=== PATIENT | female | born 1950 | race Caucasian/White ===

== ENCOUNTER 2020-05-13 20:23 | Emergency (ER) | payer MEDICARE, BC ==
[~2020-05-13] VITALS: Ht 157.5 cm; Wt 81.3 kg
[2020-05-13 23:19] LABS: BASOPHILS # (AUTO) 0.03 x10^3/uL (0-0.1); BASOPHILS % (AUTO) 0 % (0-1); EOSINOPHILS # (AUTO) 0.32 x10^3/uL (0-0.4); EOSINOPHILS % (AUTO) 4 % (1-7); LYMPHOCYTES # (AUTO) 3.01 x10^3/uL (1-3.4); LYMPHOCYTES % (AUTO) 35 % (22-44); MD NO; MEAN CORPUSCULAR HEMOGLOBIN 31.5 pg (27.0-34.8); MEAN CORPUSCULAR HGB CONC 33.3 g/dL (32.4-35.8); MEAN CORPUSCULAR VOLUME 94.8 fL (80-100); MEAN PLATELET VOLUME 10.3 fL (7.4-10.4); MONOCYTES # (AUTO) 0.96 x10^3/uL (0.2-0.8); MONOCYTES % (AUTO) 11 % (2-9); NEUTROPHILS # (AUTO) 4.34 x10^3/uL (1.8-6.8); NEUTROPHILS % (AUTO) 50 % (42-75); PLATELET COUNT 315 x10^3/uL (130-400); RED BLOOD COUNT 4.61 x10^6/uL (3.82-5.3); RED CELL DISTRIBUTION WIDTH 12.7 % (9.6-15.2)
[2020-05-13 23:31] LABS: ANION GAP 7 mmol/L (5-15); CALCIUM 9.5 mg/dL (8.5-10.1); CHLORIDE 107 mmol/L (98-107); CREATININE 0.91 mg/dL (0.55-1.02)
--- NOTE | 2020-05-13 23:32 | NUR ---
PT HERE FOR RIGHT LOWER BACK PAIN THAT IS NOW RADIATING TO THE RUQ. VSS. PT UNABLE TO GIVE UA AT THIS TIME. 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 PT AWARE THAT UA IS NEEDED. CALL LIGHT IN REACH
--- NOTE | 2020-05-14 00:22 | NUR ---
PT UP TO BATHROOM FOR UA. PT AMBULATES INDEPENDENTLY WITH A STEADY GAIT.
[2020-05-14 00:46] LABS: HCT (SEDRATE) 43.7 % (34.6-47.8)
[2020-05-14 00:53] LABS: MICROSCOPIC AUTO
[2020-05-14 02:11] VITALS: BP 121/72
--- NOTE | 2020-05-14 02:11 | NUR ---
Patient given discharge instructions and they have confirmed that they understand the instructions. Patient ambulatory with steady gait.
== END 2020-05-14 02:13 | disposition home or self-care (01) ==
LOC: ED 23:15
DX: M54.5 Low back pain (principal); N30.00 Acute cystitis without hematuria; M62.830 Muscle spasm of back; Z90.710 Acquired absence of both cervix and uterus
CPT/HCPCS: 36415; 72110; 80048; 81001; 85025; 85651; 86140; 87086; 99284

== ENCOUNTER 2021-02-02 10:17 | Emergency (ER) | payer MEDICARE, BC ==
[~2021-02-02] VITALS: Ht 157.5 cm; Wt 75.0 kg
--- NOTE | 2021-02-02 10:28 | NUR ---
[facility]F THIS MORNING AT 0915. TRIPPED ON A BRICK WATERING HER BIRDS TODAY AND FELL ON HER LEFT SIDE. C/O LEFT SHOULDER, HIP, ANKLE, KNEE PAIN. - [facility] GAVE FENTANYL, PAIN 04/27. AT BEDSIDE
[2021-02-02] MEDS ORDERED: FENO43CA6 PO (10:35)
[2021-02-02] MEDS ORDERED: EZET10TA70 PO (10:35)
[2021-02-02] MEDS ORDERED: OMEP10CA5 PO (10:35)
[2021-02-02] MEDS ORDERED: OXYB5TAB10 PO (10:35)
--- NOTE | 2021-02-02 10:36 | NUR ---
PT IN BED IN GOWN WITH CONT SPO2, BP Q 30 MIN, SIDE RRAILS UP X2, CALL LIGHT IN REACH. WENT OVER PLAN OF CARE FROM ORDER LIST, PT AGREES TO PLAN.
--- NOTE | 2021-02-02 10:59 | NUR ---
Pt to CT
[2021-02-02 13:29] VITALS: BP 126/70
== END 2021-02-02 13:31 | disposition home or self-care (01) ==
LOC: ED 10:28
DX: S40.012A Contusion of left shoulder, initial encounter (principal); S70.02XA Contusion of left hip, initial encounter; S80.02XA Contusion of left knee, initial encounter; W01.0XXA Fall on same level from slipping, tripping and stumbling without subsequent striking against object, initial encounter; Y93.89 Activity, other specified; Y92.009 Unspecified place in unspecified non-institutional (private) residence as the place of occurrence of the external cause; Y99.8 Other external cause status
CPT/HCPCS: 70450; 72125; 72131; 99285